=== PATIENT | female | born 1965 | race African-American/Black ===

== ENCOUNTER 2017-01-31 17:39 | Observation (INO) | payer SELFPAY ==
[~2017-01-31] VITALS: Ht 162.6 cm; Wt 59.1 kg
[2017-01-31 17:44] VITALS: BP 168/82; PULSE 93; RESP 18; TEMP 98.4; O2SAT 98
[2017-01-31 19:15] VITALS: BP 147/81; PULSE 84; RESP 16; O2SAT 97
[2017-01-31] MEDS ORDERED: AMOX500C PO (19:17)
[2017-01-31] MEDS ORDERED: IRONTAB3 PO (19:17)
--- NOTE | 2017-01-31 19:44 | PD ---
HPI Chief Complaint: Cardiac Complaint Time Seen by Provider: 19:24 Travel History International Travel<30 days: No Contact w/Intl Traveler<30days: No Traveled to known affect area: No History of Present Illness HPI The patient was seen and examined in the presence of the nurse. This patient complains of some chest discomfort the left upper chest. Duration is several days. It waxes and wanes and is not necessarily exertional. She also feels like at times her heart is racing. Symptoms severity is moderate. No alleviating factors. No exacerbating factors. She denies history of cardiac disease. Never had stress testing. PFSH Past Medical History High Cholesterol: Yes Diminished Hearing: No Respiratory: Yes (frequent sinusitis/seasonal allergies) Immunizations Current: Yes Influenza Vaccination: Yes ?: Not : 0 Past Surgical History Surgical History: No Previous Surgery Social History Alcohol Use: No Tobacco Use: No Substance Use: No Allergies-Medications (Allergen,Severity, Reaction): Coded Allergies: No Known Allergies (Unverified , 01/31/17) Reported Meds & Prescriptions Reported Meds & Active Scripts Active Reported Geritol Complete (Iron-Vitamins) 16 Mg Iron-0.38 Mg Tab 1 Tab PO DAILY Amoxicillin 500 Mg Cap 500 Mg PO TID Review of Systems General / Constitutional: No: Fever Eyes: No: Visual changes HENT: No: Headaches Cardiovascular: Positive: Chest Pain or Discomfort, Tachycardia Respiratory: No: Shortness of Breath Gastrointestinal: No: Abdominal Pain Genitourinary: No: Dysuria Musculoskeletal: No: Pain Skin: No Rash Neurologic: No: Weakness Psychiatric: No: Depression Endocrine: No: Polydipsia Hematologic/Lymphatic: No: Easy Bruising Physical Exam Narrative GENERAL: Well-nourished, well-developed patient in no apparent distress. SKIN: Focused skin assessment reveals no rash and nodules. Skin is Warm and dry. HEAD: Atraumatic. Normocephalic. EYES: Pupils equal and round. No scleral icterus. No injection or drainage. ENT: No nasal bleeding or discharge. Mucous membranes pink and moist. NECK: Trachea midline. No JVD. CARDIOVASCULAR: Regular rate and rhythm. No murmur appreciated. RESPIRATORY: No accessory muscle use. Clear to auscultation. Breath sounds equal bilaterally. GASTROINTESTINAL: Abdomen soft, non-tender, nondistended. Hepatic and splenic margins not palpable. MUSCULOSKELETAL: No obvious deformities. No clubbing. No cyanosis. No edema. NEUROLOGICAL: Awake and alert. No obvious cranial nerve deficits. Motor grossly within normal limits. Normal speech. PSYCHIATRIC: Appropriate mood and affect; insight and judgment normal. Data Data Last Documented VS Vital Signs Date Time Temp Pulse Resp B/P (MAP) Pulse Ox O2 Delivery O2 Flow Rate FiO2 01/31/17 19:31 84 16 97 Room Air 01/31/17 19:15 147/81 (103) 01/31/17 17:44 98.4 Orders Orders Electrocardiogram (01/31/17 19:32) Basic Metabolic Panel (Bmp) (01/31/17 19:32) Ckmb (Isoenzyme) Profile (01/31/17 19:32) Complete Blood Count With Diff (01/31/17 19:32) Magnesium (Mg) (01/31/17 19:32) Prothrombin Time / Inr (Pt) (01/31/17 19:32) Act Partial Throm Time (Ptt) (01/31/17 19:32) Troponin I (01/31/17 19:32) Chest, Single Ap (01/31/17 19:32) Ecg Monitoring (01/31/17 19:32) Iv Access Insert/Monitor (01/31/17 19:32) Oximetry (01/31/17 19:32) Aspirin (Aspirin) (01/31/17 19:45) Sodium Chloride 0.9% Flush (Ns Flush) (01/31/17 19:45) CKMB (01/31/17 19:35) CKMB% (01/31/17 19:35) Admit Order (Ed Use Only) (01/31/17 21:02) Labs Laboratory Tests Test 01/31/17 19:35 White Blood Count 8.3 TH/MM3 Red Blood Count 5.07 MIL/MM3 Hemoglobin 14.1 GM/DL Hematocrit 42.7 % Mean Corpuscular Volume 84.2 FL Mean Corpuscular Hemoglobin 27.7 PG Mean Corpuscular Hemoglobin Concent 32.9 % Red Cell Distribution Width 12.8 % Platelet Count 260 TH/MM3 Mean Platelet Volume 7.7 FL Neutrophils (%) (Auto) 62.8 % Lymphocytes (%) (Auto) 27.6 % Monocytes (%) (Auto) 7.9 % Eosinophils (%) (Auto) 0.7 % Basophils (%) (Auto) 1.0 % Neutrophils # (Auto) 5.1 TH/MM3 Lymphocytes # (Auto) 2.3 TH/MM3 Monocytes # (Auto) 0.7 TH/MM3 Eosinophils # (Auto) 0.1 TH/MM3 Basophils # (Auto) 0.1 TH/MM3 CBC Comment DIFF FINAL Differential Comment Prothrombin Time 10.4 SEC Prothromb Time International Ratio 1.0 RATIO Activated Partial Thromboplast Time 25.9 SEC Blood Urea Nitrogen 12 MG/DL Creatinine 0.82 MG/DL Random Glucose 105 MG/DL Calcium Level 9.3 MG/DL Magnesium Level 2.0 MG/DL Sodium Level 139 MEQ/L Potassium Level 3.9 MEQ/L Chloride Level 105 MEQ/L Carbon Dioxide Level 28.7 MEQ/L Anion Gap 5 MEQ/L Estimat Glomerular Filtration Rate 88 ML/MIN Total Creatine Kinase 169 U/L Creatine Kinase MB 1.6 NG/ML Troponin I LESS THAN 0.02 NG/ML MDM Medical Decision Making Medical Screen Exam Complete: Yes Emergency Medical Condition: Yes Medical Record Reviewed: Yes Differential Diagnosis Differential diagnosis includes SD, angina, pericarditis, pleurisy, GERD, anxiety. Narrative Course I have reviewed the patient's electronic medical record. IV placed I reviewed the EKG which shows sinus rhythm without ectopy or ST elevation I reviewed the chest x-ray is negative Extended cardiac monitoring shows sinus rhythm, currently a rate of 88 CBC is normal Metabolic profile is normal CK is normal Troponin is normal Coagulation studies are normal I gave her an aspirin This patient will be a 23 hour observation in the chest pain center. Purpose is to rule out cardiac cause of her symptoms. She does have history of anxiety. Also has cardiac risk factors She says she is supposed to be on cholesterol medication but doesn't take it. Diagnosis Primary Impression: Chest pain Qualified Codes: R07.9 - Chest pain, unspecified Admitting Information Admitting Physician Requests: Observation Murali Gomes MD Jan 31, 2017 19:44
[2017-01-31] MEDS ORDERED: ASPIRIN 325 MG TAB PO ONE (19:45)
[2017-01-31] MEDS ORDERED: SODIUM CHLORIDE 0.9% FLUSH 10 ML FLUSH IVF PRN (19:45)
[2017-01-31 20:00] LABS: AUTOMATED NEUTROPHIL # 5.1 TH/MM3 (1.8-7.7); BASOPHIL # 0.1 TH/MM3 (0-0.2); EOSINOPHIL # 0.1 TH/MM3 (0-0.4); EOSINOPHIL % 0.7 % (0.0-4.0); HEMATOCRIT 42.7 % (35.0-46.0); HEMO FLAGS DIFF FINAL; LYMPH % 27.6 % (9.0-44.0); LYMPHOCYTE # 2.3 TH/MM3 (1.0-4.8); MEAN CELL VOLUME 84.2 FL (80.0-100.0); MEAN CORPUSCULAR HEMOGLOBIN 27.7 PG (27.0-34.0); MEAN CORPUSCULAR HGB CONC 32.9 % (32.0-36.0); MONO % 7.9 % (0.0-8.0); NEUT % 62.8 % (16.0-70.0); PLATELET COUNT 260 TH/MM3 (150-450); RED BLOOD COUNT 5.07 MIL/MM3 (4.00-5.30); RED CELL DISTRIBUTION WIDTH 12.8 % (11.6-17.2); WHITE BLOOD COUNT 8.3 TH/MM3 (4.0-11.0)
[2017-01-31 20:11] LABS: CHLORIDE 105 MEQ/L (98-107); POTASSIUM 3.9 MEQ/L (3.5-5.1); SODIUM (NA) 139 MEQ/L (136-145)
[2017-01-31 20:14] LABS: ANION GAP 5 MEQ/L (5-15); BICARBONATE 28.7 MEQ/L (21.0-32.0); BLOOD UREA NITROGEN 12 MG/DL (7-18)
[2017-01-31 20:16] LABS: APTT (PATIENT) 25.9 SEC (24.3-30.1); PROTHROMBIN TIME - PATIENT 10.4 SEC (9.8-11.6)
[2017-01-31 20:17] LABS: GLOMERULAR FILTRATION RATE 88 ML/MIN (>89)
[2017-01-31 20:20] LABS: CREATINE KINASE 169 U/L (26-192)
[2017-01-31 20:33] LABS: CKMB 1.6 NG/ML (0.5-3.6)
--- NOTE | 2017-01-31 20:40 | RADRPT ---
EXAM DATE/TIME: 01/31/2017 19:46 [facility] COMPARISON: No previous studies available for comparison. INDICATIONS : Chest pain. MEDICAL HISTORY : None. SURGICAL HISTORY : None. ENCOUNTER: Initial ACUITY: 1 day PAIN SCORE: 4/10 LOCATION: Left chest FINDINGS: A single view of the chest demonstrates the lungs to be symmetrically aerated without evidence of mas s, infiltrate or effusion. The cardiomediastinal contours are unremarkable. Moderate curvature of t he thoracic spine convex to the right.. CONCLUSION: The lungs are clear. Zackery Brantley MD on January 31, 2017 at 20:37 Board Certified Radiologist. This report was verified electronically.
[2017-01-31 20:45] VITALS: BP 127/67; PULSE 82; RESP 16; O2SAT 97
[2017-01-31] MEDS ORDERED: ONDANSETRON HCL 4 MG/2 ML VIAL IV PUSH PRN (21:15)
[2017-01-31] MEDS ORDERED: ACETAMINOPHEN 500 MG CPLT PO PRN (21:15)
[2017-01-31] MEDS ORDERED: NITROGLYCERIN 0.4 MG SL 25 TABS/BTL SL PRN (21:15)
[2017-01-31 21:45] VITALS: BP 134/79; PULSE 80; RESP 16; O2SAT 99
[2017-01-31 22:30] VITALS: PULSE 71
[2017-01-31 22:45] VITALS: BP 133/68; PULSE 70; RESP 18; TEMP 98.6; O2SAT 98
[2017-02-01] VITALS: BP 133/68; PULSE 70; RESP 18; TEMP 98.6; O2SAT 98
[2017-02-01 04:00] VITALS: BP 121/65; PULSE 66; RESP 16; TEMP 97.9; O2SAT 97
[2017-02-01 08:00] VITALS: BP 118/73; PULSE 68; PULSE 98; RESP 15; TEMP 97.6; O2SAT 100
[2017-02-01] MEDS ORDERED: ASPIRIN 325 MG TAB PO SCH (09:00)
[2017-02-01] MEDS ORDERED: SODIUM CHLORIDE 0.9% FLUSH 10 ML FLUSH IV FLUSH SCH (09:00)
--- NOTE | 2017-02-01 09:33 | HHI.HP ---
[facility] Physician Yanick Du MD Admission Diagnosis chest pain Diagnoses: Chief Complaint: Heart racing, chest discomfort. Travel History International Travel<30 Days: No Contact w/Intl Traveler <30 Da: No Traveled to Known Affected Are: No History of Present Illness Ms. Cade is a 51-year-old female with a history of hypercholesterolemia who presented to the emergency department on 01/31/2017 due to left upper chest discomfort, a feeling of heart racing. Patient reports that for the last 2 days prior to this admission she has been feeling increased heart rate. She also had left upper chest achy pain radiating to her back. She denies any radiation to arms, neck, jaw. She denies any nausea vomiting or diaphoresis during episodes of chest discomfort. She went to an urgent care and she was told her EKG did not look normal. She denies any cough, fever or chills. Denies any changes in bowel or bladder habits. Never had a stress test. ED workup indicated EKG with sinus tachycardia with no acute ischemic changes. Troponins negative. Electrolytes are also within normal range. Chest x-ray negative. Review of Systems Except as stated in HPI: all other systems reviewed are Neg Past Family Social History Past Medical History Hypercholesterolemia Past Surgical History No history of previous surgery Reported Medications Geritol Complete (Iron-Vitamins) 16 Mg Iron-0.38 Mg Tab 1 Tab PO DAILY Amoxicillin 500 Mg Cap 500 Mg PO TID Allergies: Coded Allergies: No Known Allergies (Unverified , 01/31/17) Family History Father - heart disease, hypertension, diabetes mellitus. Social History Patient denies using tobacco, alcohol, illicit drugs. Physical Exam Vital Signs Vital Signs Date Time Temp Pulse Resp B/P (MAP) Pulse Ox O2 Delivery O2 Flow Rate FiO2 02/01/17 04:00 97.9 66 16 121/65 (83) 97 02/01/17 00:00 98.6 70 18 133/68 (89) 98 01/31/17 22:45 98.6 70 18 133/68 (89) 98 01/31/17 22:30 71 01/31/17 22:10 01/31/17 21:45 80 16 134/79 (97) 99 Room Air 01/31/17 20:45 82 16 127/67 (87) 97 Room Air 01/31/17 19:31 84 16 97 Room Air 01/31/17 19:15 84 16 147/81 (103) 97 Room Air 01/31/17 19:15 16 97 Room Air 01/31/17 17:44 98.4 93 18 168/82 (110) 98 Physical Exam GENERAL: This is a well-nourished, well-developed patient, in no apparent distress. SKIN: No rashes, ecchymoses or lesions. Warm and dry. HEAD: Atraumatic. Normocephalic. No temporal or scalp tenderness. EYES: Pupils equal round and reactive. No injection or drainage. ENT: Nose without bleeding, purulent drainage or septal hematoma. Airway patent. NECK: Trachea midline. No lymphadenopathy. Supple, nontender, no meningeal signs. CARDIOVASCULAR: Regular rate and rhythm without murmurs, gallops, or rubs. No JVD. No pain on palpation. RESPIRATORY: Clear to auscultation. Breath sounds equal bilaterally. No wheezes , rales, or rhonchi. GASTROINTESTINAL: Abdomen soft, non-tender, nondistended. No guarding. MUSCULOSKELETAL: Extremities without clubbing, cyanosis, or edema. NEUROLOGICAL: Awake and alert. Cranial nerves II through XII intact. No focal neurological deficits. Normal speech. Laboratory Laboratory Tests Test 01/31/17 19:35 01/31/17 22:42 02/01/17 01:29 White Blood Count 8.3 Red Blood Count 5.07 Hemoglobin 14.1 Hematocrit 42.7 Mean Corpuscular Volume 84.2 Mean Corpuscular Hemoglobin 27.7 Mean Corpuscular Hemoglobin Concent 32.9 Red Cell Distribution Width 12.8 Platelet Count 260 Mean Platelet Volume 7.7 Neutrophils (%) (Auto) 62.8 Lymphocytes (%) (Auto) 27.6 Monocytes (%) (Auto) 7.9 Eosinophils (%) (Auto) 0.7 Basophils (%) (Auto) 1.0 Neutrophils # (Auto) 5.1 Lymphocytes # (Auto) 2.3 Monocytes # (Auto) 0.7 Eosinophils # (Auto) 0.1 Basophils # (Auto) 0.1 CBC Comment DIFF FINAL Differential Comment Prothrombin Time 10.4 Prothromb Time International Ratio 1.0 Activated Partial Thromboplast Time 25.9 Blood Urea Nitrogen 12 Creatinine 0.82 Random Glucose 105 Calcium Level 9.3 Magnesium Level 2.0 Sodium Level 139 Potassium Level 3.9 Chloride Level 105 Carbon Dioxide Level 28.7 Anion Gap 5 Estimat Glomerular Filtration Rate 88 Total Creatine Kinase 169 Creatine Kinase MB 1.6 Troponin I LESS THAN 0.02 LESS THAN 0.02 LESS THAN 0.02 Result Diagram: 01/31/17193401/31/171934 Imaging Last Impressions Chest X-Ray 01/31/171931 Signed Impressions: Service Date/Time: Tuesday, January 31, 2017 19:46 - CONCLUSION: The lungs are clear. MD Tariq Garcia VTE Risk Assessment Tariq VTE Risk Assessment: No/Low Risk (score <= 1) Caprini Risk Assessment Model Point Value = 1 Point Value = 2 Point Value = 3 Point Value = 5 Age 41-60 Minor surgery BMI > 25 kg/m2 Swollen legs Varicose veins or History of unexplained or recurrent spontaneous Oral contraceptives or hormone replacement Sepsis (< 1 month) Serious lung disease, including pneumonia (< 1 month) Abnormal pulmonary function Acute myocardial infarction Congestive heart failure (< 1 month) History of inflammatory bowel disease Medical patient at bed rest Age 61-74 Arthroscopic surgery Major open surgery (> 45 min) Laparoscopic surgery (> 45 min) Malignancy Confined to bed (> 72 hours) Immobilizing plaster cast Central venous access Age >= 75 History of VTE Family history of VTE Factor V Leiden Prothrombin [id number] Lupus anticoagulant Anticardiolipin antibodies Elevated serum homocysteine Heparin-induced thrombocytopenia Other congenital or acquired thrombophilia Stroke (< 1 month) Elective arthroplasty Hip, pelvis, or leg fracture Acute spinal cord injury (< 1 month) Prophylaxis Regimen Total Risk Factor Score Risk Level Prophylaxis Regimen 0-1 Low Early ambulation 2 Moderate Order ONE of the following: *Sequential Compression Device (SCD) *Heparin 5000 units SQ BID 3-4 Higher Order ONE of the following medications: *Heparin 5000 units SQ TID *Enoxaparin/Lovenox 40 mg SQ daily (WT < 150 kg, CrCl > 30 mL/min) *Enoxaparin/Lovenox 30 mg SQ daily (WT < 150 kg, CrCl > 10-29 mL/min) *Enoxaparin/Lovenox 30 mg SQ BID (WT < 150 kg, CrCl > 30 mL/min) AND/OR *Sequential Compression Device (SCD) 5 or more Highest Order ONE of the following medications: *Heparin 5000 units SQ TID (Preferred with Epidurals) *Enoxaparin/Lovenox 40 mg SQ daily (WT < 150 kg, CrCl > 30 mL/min) *Enoxaparin/Lovenox 30 mg SQ daily (WT < 150 kg, CrCl > 10-29 mL/min) *Enoxaparin/Lovenox 30 mg SQ BID (WT < 150 kg, CrCl > 30 mL/min) AND *Sequential Compression Device (SCD) Assessment and Plan Problem List: (1) Chest pain ICD Code: R07.9 - Chest pain, unspecified Status: Acute Assessment and Plan Mr. Cade is a 51-year-old female with a history of hypercholesterolemia who presented to the emergency department on 01/31/2017 due to a feeling of heart racing, chest discomfort on her left upper chest radiating to her back. Denies any nausea vomiting or diaphoresis. She is currently chest pain-free. ED workup shows negative chest x-ray, EKG showing sinus tachycardia and second EKG shows normal sinus rhythm. - Chest pain - Troponins negative so far. - We'll obtain a treadmill exercise stress test. If negative patient can go home today. - We'll start patient on Lipitor 40 mg daily at bedtime. - Also start aspirin 81 mg daily. - Sinus tachycardia - Patient's heart rate was 93 on admission. Most of the time she has been in the 70s and 80s. - We'll check her TSH. - We'll consider low-dose beta dev. Full code. Ambulation. Problem Qualifiers (1) Chest pain: Qualified Codes: R07.9 - Chest pain, unspecified Miko Du DO Feb 01, 2017 9:32 am
[2017-02-01 12:00] VITALS: BP 134/85; PULSE 87; RESP 17; TEMP 97.9; O2SAT 97
[2017-02-01] MEDS ORDERED: REGADENOSON INJ 0.4 MG/5 ML SYR IV ONE (13:51)
--- NOTE | 2017-02-01 15:19 | RADRPT ---
EXAM DATE/TIME: 02/01/2017 13:47 [facility] COMPARISON: No previous studies available for comparison. INDICATIONS : Left sided chest pain with racing heart for two days. Angina. DOSE: 25.4 mCi Tc99m Myoview at stress. 8.6 mCi Tc99m Myoview at rest. 0.4 mg Lexiscan STRESS SYMPTOMS: Shortness of breath. EJECTION FRACTION: > 70% MEDICAL HISTORY : Hypercholesterolemia. SURGICAL HISTORY : None. ENCOUNTER: Initial ACUITY: 2 days PAIN SCALE: 3/10 LOCATION: Left chest TECHNIQUE: The patient underwent pharmacologic stress with infusion of prescribed dose. Continuous ECG tracing was monitored during stress. Gated SPECT imaging was performed after stress and conventional SPECT i maging was performed at rest. The examination was performed on a SPECT/CT scanner, both attenuation and non-corrected datasets were reviewed. FINDINGS: DISTRIBUTION: The maximum perfused segment at stress is in the anterior wall. PERFUSION STUDY: The pattern of perfusion at stress is within normal limits. GATED STUDY: There is intact wall motion and thickening without hypokinetic or dyskinetic segments. CONCLUSION: No reversible defects observed to suggest acute ischemia. RISK CATEGORY: Low Zackery Forrester Jr., MD on February 01, 2017 at 15:14 Board Certified Radiologist. This report was verified electronically.
--- NOTE | 2017-02-01 15:30 | EKG ---
Date Performed: 01/31/2017 Time Performed: 17:53:21 PTAGE: 51 years EKG: SINUS TACHYCARDIA POSSIBLE LEFT ATRIAL ENLARGEMENT Nonspecific ST-T wave changes. ABNORMAL RHYTHM ECG NO PREVIOUS TRACING DOCTOR: Chong Duval Interpretating Date/Time 02/01/2017 15:29:16
--- NOTE | 2017-02-01 15:31 | EKG ---
Date Performed: 02/01/2017 Time Performed: 01:37:43 PTAGE: 51 years EKG: Sinus rhythm Since previous tracing, no significant change noted NORMAL ECG PREVIOUS TRACING : 01/31/2017 22.40 DOCTOR: Chong Duval Interpretating Date/Time 02/01/2017 15:31:02
--- NOTE | 2017-02-01 15:31 | EKG ---
Date Performed: 01/31/2017 Time Performed: 22:40:36 PTAGE: 51 years EKG: Sinus rhythm When compared to previous tracing, rate has slowed, and ST Changes persist. ABNORMAL ECG PREVIOUS TRACING : 01/31/2017 17.53 DOCTOR: Chong Duval Interpretating Date/Time 02/01/2017 15:30:34
[2017-02-01] MEDS ORDERED: LIPI40TA PO (16:34)
[2017-02-01] MEDS ORDERED: ECASA81 PO (16:34)
[2017-02-01] MEDS ORDERED: ATORVASTATIN 40 MG TAB PO SCH (21:00)
[2017-02-02] MEDS ORDERED: ASPIRIN EC 81 MG TABEC PO SCH (09:00)
--- NOTE | 2017-02-03 13:18 | TR ---
Date Performed: 02/01/2017 Time Performed: 14:11:44 DOCTOR: Serge Crowe DRUG LIST: CLINICAL HISTORY: CHEST PAIN ANGINA REASON FOR TEST: Angina REASON FOR ENDING: OBSERVATION: CONCLUSION: Lexiscan stress test was performed under standard four minute protocol. Radionuclid e was injected one minute prior to ending the test. No electrocardiographic abormalities were present to suggest ischemia. Nuclear imaging and interpretation are pending. COMMENTS:
== END 2017-02-01 17:57 | disposition home or self-care (01) ==
LOC: PHED 17:39 → PHEDA 21:03 → PH3A 22:15
PROVIDERS: ADMIT Hospitalist; ATTEND Hospitalist
DX: R07.9 Chest pain, unspecified (principal); E78.00 Pure hypercholesterolemia, unspecified; R00.0 Tachycardia, unspecified; R94.31 Abnormal electrocardiogram [ECG] [EKG]
CPT/HCPCS: 71010; 78452; 80048; 82550; 82552; 83735; 84443; 84484; 85025; 85610; 85730; 93005; 93017; 99285; A9502; G0378; J2785